=== PATIENT | male | born 1995 | race Caucasian/White ===

== ENCOUNTER 2016-12-05 20:09 | Emergency (ER) | payer BC ==
[2016-12-05 22:31] VITALS: BP 145/72
== END 2016-12-05 22:31 | disposition home or self-care (01) ==
LOC: ED 20:09
DX: S40.022A Contusion of left upper arm, initial encounter (principal); X58.XXXA Exposure to other specified factors, initial encounter; Y93.89 Activity, other specified; Y99.8 Other external cause status; Y92.89 Other specified places as the place of occurrence of the external cause
CPT/HCPCS: 90715; A4570; Q0092